=== PATIENT | male | born 1995 | race Caucasian/White ===

== ENCOUNTER 2016-04-19 16:04 | Outpatient (CLI) | payer MEDICAID | END 2016-04-19 16:05 | disposition home or self-care (01) | DX: Z20.2 Contact with and (suspected) exposure to infections with a predominantly sexual mode of transmission (principal) ==

== ENCOUNTER 2016-10-29 04:29 | Emergency (ER) | payer SELFPAY ==
[2016-10-29] MEDS ORDERED: ONDANSETRON 4 MG/2 ML VIAL IVP STA (04:51)
[2016-10-29] MEDS ORDERED: SODIUM CHLORIDE 0.9% 1,000 ML IV ONE (04:51)
[2016-10-29] MEDS ORDERED: KETOROLAC 60 MG/2 ML VIAL IVP STA (04:51)
--- NOTE | 2016-10-29 04:54 | ED Physician Documentation ---
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 denies: Diarrhea, Bloody / black stool : denies: Dysuria Musculoskeletal: denies: Back pain Endocrine: denies: Easy bruising / bleeding Immunocompromised: denies: Immunocompromised PD PAST MEDICAL HISTORY - Past Medical History Respiratory: Asthma GI: Other Other Past Medical History: Appendicitis - Past Surgical History Past Surgical History: Yes General: Appendectomy - Present Medications Home Medications: Ambulatory Orders Medication Instructions Recorded Confirmed Albuterol Sulf [Ventolin Hfa 2 puffs INH Q4HR PRN #1 inhaler 03/03/16 Inhaler] Dicyclomine [Bentyl] 10 mg PO Q8H PRN #20 capsule 10/29/16 - Allergies Allergies/Adverse Reactions: Allergies Allergy/AdvReac Type Severity Reaction Status Date / Time No Known Drug Allergies Allergy Verified 03/03/16 22:05 - Social History Does the pt smoke?: No Smoking Status: Never smoker Does the pt drink ETOH?: No Does the pt have substance abuse?: No - Immunizations Immunizations are current?: Yes PD ED PE NORMAL - Vitals Vital signs reviewed: Yes - General General: Alert and oriented X 3 - HEENT HEENT: Atraumatic - Neck Neck: Supple, no meningeal sign - Cardiac Cardiac: RRR - Respiratory Respiratory: No respiratory distress, Clear bilaterally - Abdomen Abdomen: Other (+ BS, soft, TTP upper > lower abd midd > bilaterally with vol guarding, no rebound, no palpable ventral hernia, no distended) - Male Male : Deferred (denies any pain or swelling) - Back Back: No CVA TTP - Derm Derm: Normal color - Extremities Extremities: No deformity - Neuro Neuro: Alert and oriented X 3 Results - Vitals Vitals: Vital Signs - 24 hr 10/29/16 04:35 Temperature 36.4 C L Heart Rate 71 Respiratory 16 Rate Blood Pressure 127/68 O2 Saturation 100 Oxygen O2 Source Room air - Labs Labs: Laboratory Tests 10/29/16 10/29/16 10/29/16 04:56 04:56 05:36 WBC 7.7 RBC 5.97 Hgb 17.5 Hct 51.4 MCV 86.1 MCH 29.3 MCHC 34.0 RDW 13.6 Plt Count 345 MPV 6.6 L Neut # 2.7 Lymph # 3.5 Gilchrist # 0.7 Eos # 0.7 Baso # 0.1 Absolute Nucleated RBC 0.01 Nucleated RBCs 0.1 Sodium 141 Potassium 4.0 Chloride 102 Carbon Dioxide 32 Anion Gap 7.0 BUN 12 Creatinine 0.7 Estimated GFR (MDRD) 140 Glucose 102 H Calcium 9.7 Total Bilirubin 1.2 H AST 22 ALT 17 Alkaline Phosphatase 54 Total Protein 8.7 H Albumin 5.5 Globulin 3.2 Albumin/Globulin Ratio 1.7 Lipase 21 L Urine Color YELLOW Urine Clarity HAZY Urine pH 8.0 H Ur Specific [place] 1.010 Urine Protein NEGATIVE Urine Glucose (UA) NEGATIVE Urine Ketones NEGATIVE Urine Occult Blood NEGATIVE Urine Nitrite NEGATIVE Urine Bilirubin NEGATIVE Urine Urobilinogen 0.2 (NORMAL) Ur Leukocyte Esterase NEGATIVE Urine RBC None Seen Urine WBC 0-3 Ur Squamous Epith Cells NONE SEEN Amorphous Sediment Moderate Urine Bacteria None Seen Ur Microscopic Review INDICATED Urine Culture Comments NOT INDICATED - Rads (name of study) CT abd pelvis Radiology: See rad report (no acute, mod stool brudern) PD MEDICAL DECISION MAKING - ED course ED course: CT neg for SBO perf gallstones kidney stones pancreatitis aortic issues etc much better after toradol repeat abd exam = mild TTP just superior to umbilicus, no RUQ RLQ pain reassured pt that CT, explained that does not mean nothing is wrong just that there does not seem to be a surgical emergency at this moment and will focus on sx management and prob dc home Departure - Departure Disposition: 01 Home, Self Care Clinical Impression: Abdominal pain Qualifiers: Abdominal location: periumbilical Qualified Code(s): R10.33 - Periumbilical pain Condition: Good Instructions: ED Abdominal Pain Unkn Cause Follow-Up: Janee Cuello ARNP [Primary Care Provider] - Prescriptions: Dicyclomine [Bentyl] 10 mg PO Q8H PRN #20 capsule PRN Reason: stomach pain Comments: All of the tests today came back fine. The urine showed no infection or blood to suggest a kidney stone The blood work including kidney liver and pancreas function was fine. The CT scan did not show any gallstones or kidney stones, no pancreatitis, no aneurysm, no bowel infection/perforation/obstruction, no internal bleeding or free fluid. I am not sure what is causing the pain But given the extensive and reassuring workup, I do not think you need surgery or admission or antibiotics. I think it is safe for you to go home and to get any further work up as an outpatient It is very possible that over time, new or changing symptoms may develop that lead to a diagnosis not presently apparent. That is why close follow up with your PMD for a recheck is very important ( unless you are completely better) If the pain returns or worsens, you can try a medication called bentyl to ease the pains. I do not recommend any strong pain killers because I do not want to mask changing or worsening symptoms Forms: Activity restrictions
[2016-10-29] MEDS ORDERED: KETOROLAC 60 MG/2 ML VIAL ONE (05:05)
[2016-10-29] MEDS ORDERED: ONDANSETRON 4 MG/2 ML VIAL ONE (05:06)
[2016-10-29 05:07] LABS: BASOPHILS # (AUTO) 0.1 10^3/uL (0.0-0.1); BASOPHILS % (AUTO) 1.4 %; EOSINOPHILS # (AUTO) 0.7 10^3/uL (0.0-0.7); EOSINOPHILS % (AUTO) 9.1 %; HCT - HEMATOCRIT 51.4 % (42.0-52.0); HGB - HEMOGLOBIN 17.5 g/dL (14.0-18.0); LYMPHOCYTES # (AUTO) 3.5 10^3/uL (1.5-3.5); LYMPHOCYTES % (AUTO) 44.9 %; MEAN CORPUSCULAR HEMOGLOBIN 29.3 pg (27.0-31.0); MEAN CORPUSCULAR VOLUME 86.1 fL (80.0-94.0); MEAN PLATELET VOLUME 6.6 fL (7.4-11.4); MONOCYTES # (AUTO) 0.7 10^3/uL (0.0-1.0); MONOCYTES % (AUTO) 9.2 %; NEUTROPHILS # (AUTO) 2.7 10^3/uL (1.5-6.6); NEUTROPHILS % (AUTO) 35.4 %; NUCLEATED RED BLOOD CELLS AUTO 0.1 /100WBC; RED BLOOD COUNT 5.97 10^6/uL (4.70-6.10); RED CELL DISTRIBUTION WIDTH 13.6 % (12.0-15.0); UNCORRECTED WHITE BLOOD COUNT 7.7 x10^3/uL; WHITE BLOOD COUNT 7.7 x10^3/uL (4.8-10.8)
[2016-10-29 05:17] LABS: ALBUMIN/GLOBULIN RATIO 1.7 (1.0-2.2); BILIRUBIN,TOTAL 1.2 mg/dL (0.2-1.0); CALCIUM 9.7 mg/dL (8.5-10.3); CREATININE 0.7 mg/dL (0.6-1.2); TOTAL PROTEIN 8.7 g/dL (6.7-8.2)
[2016-10-29] MEDS ORDERED: IOPAMIDOL-300 100 ML VIAL IVP ONE (05:37)
[2016-10-29 05:45] LABS: BILIRUBIN,URINE NEGATIVE (NEGATIVE); UA w/ MICROSCOPIC CHARGE YES
[2016-10-29 05:51] LABS: UR CULTURE IF IND NOT INDICATED; WBC,URINE 0-3 /HPF (0-3)
--- NOTE | 2016-10-29 05:51 | CT Preliminary Report ---
Exam: CT Abdomen/Pelvis W/ IMPRESSION: 1. No acute inflammatory or obstructive process seen in the abdomen or pelvis. 2. Moderate stool burden. [facility] SITE ID: [id number]
--- NOTE | 2016-10-29 05:58 | CT Report ---
EXAM: CT ABDOMEN AND PELVIS EXAM DATE: 10/29/2016 05:41 AM. CLINICAL HISTORY: Severe upper and lower abdominal pain, nausea and vomiting. COMPARISONS: None. TECHNIQUE: Routine helical CT imaging was performed through the abdomen and pelvis. IV contrast: Yes . Enteric contrast: No . Reconstructions: Coronal and sagittal. In accordance with CT protocol optimization, one or more of the following dose reduction techniques w ere utilized for this exam: automated exposure control, adjustment of mA and/or KV based on patient s ize, or use of iterative reconstructive technique. FINDINGS: Lung Bases: Unremarkable. Liver: Unremarkable. No suspicious masses. Gallbladder/Bile Ducts: Unremarkable. Spleen: Unremarkable. Pancreas: Unremarkable. Adrenal Glands: Unremarkable. Kidneys: Unremarkable. No suspicious masses or hydronephrosis. Peritoneal Cavity/Bowel: No bowel obstruction or inflammatory process seen. No free air or significan t free fluid. Minimal free fluid in the pelvis is not atypical in young males. No masses or adenopath y. The appendix is has been removed. Moderate stool burden in the right and sigmoid colon. Pelvic Organs: Bladder and prostate appear unremarkable. Vasculature: No aneurysms or other significant abnormality. Bones: No significant abnormality. Other: None. IMPRESSION: 1. No acute inflammatory or obstructive process seen in the abdomen or pelvis. 2. Moderate stool burden. [facility] Referring Provider Line: [phone] SITE ID: [id number]
[2016-10-29] MEDS ORDERED: MAG HYDROX/AL HYDROX/SIMETH 30 ML UDC PO STA (06:06)
[2016-10-29] MEDS ORDERED: LIDOCAINE VISCOUS 2% 15 ML UDC MM STA (06:06)
[2016-10-29] MEDS ORDERED: MAG HYDROX/AL HYDROX/SIMETH 30 ML UDC ONE (06:12)
[2016-10-29] MEDS ORDERED: LIDOCAINE VISCOUS 2% 15 ML UDC MM ONE (06:12)
[2016-10-29 06:25] VITALS: BP 125/88
== END 2016-10-29 06:24 | disposition home or self-care (01) ==
LOC: ED 04:29
DX: R10.33 Periumbilical pain (principal); J45.909 Unspecified asthma, uncomplicated
CPT/HCPCS: 36415; 74177; 80053; 81001; 83690; 85025; 96374; 99283; 99284; A9270; Q9967; 81003; 87086

== ENCOUNTER 2018-02-21 00:40 | Emergency (ER) | payer OTHER ==
[2018-02-21 01:04] VITALS: BP 142/74
[2018-02-21] MEDS ORDERED: ONDANSETRON ODT 4 MG TABLET TL STA (01:44)
[2018-02-21] MEDS ORDERED: FAMOTIDINE 20 MG TABLET PO STA (01:45)
--- NOTE | 2018-02-21 01:52 | ED Physician Documentation ---
History of Present Illness - Stated complaint Stated Complaint: VOMITING - Chief complaint Chief Complaint: General - Additonal information Additional information: hx from pt 23 y/o male ate nachos vomited nachos then vomited with blood streak drank water vomited again till with blood streaks no bloody black BM mild epigastric pain'sx improved now did not dry heave retch valsalva etc Review of Systems Constitutional: denies: Fever Cardiac: denies: Chest pain / pressure Respiratory: denies: Dyspnea GI: reports: Abdominal Pain (mild), Vomiting, Hematemesis. denies: Bloody / black stool PD PAST MEDICAL HISTORY - Past Medical History Respiratory: Asthma GI: Other - Past Surgical History Past Surgical History: Yes General: Appendectomy - Present Medications Home Medications: Ambulatory Orders Medication Instructions Recorded Confirmed Albuterol Sulf [Ventolin Hfa 2 puffs INH Q4HR PRN #1 inhaler 03/03/16 Inhaler] Dicyclomine [Bentyl] 10 mg PO Q8H PRN #20 capsule 10/29/16 Ondansetron Odt [Zofran] 4 mg TL Q6H PRN #10 tablet 02/21/18 Sucralfate [Carafate] 1 gm PO ACHS #120 tablet 02/21/18 raNITIdine [Zantac] 150 mg PO BID #60 tablet 02/21/18 - Allergies Allergies/Adverse Reactions: Allergies Allergy/AdvReac Type Severity Reaction Status Date / Time No Known Drug Allergies Allergy Verified 02/21/18 01:04 - Social History Does the pt smoke?: No Smoking Status: Never smoker Does the pt drink ETOH?: No Does the pt have substance abuse?: No - Immunizations Immunizations are current?: Yes PD ED PE NORMAL - Vitals Vital signs reviewed: Yes - General General: Alert and oriented X 3 - Cardiac Cardiac: RRR - Respiratory Respiratory: No respiratory distress - Abdomen Abdomen: Soft, Non tender - Derm Derm: Normal color - Neuro Neuro: Alert and oriented X 3 Results - Vitals Vitals: Vital Signs - 24 hr 02/21/18 02/21/18 01:02 01:50 Temperature 36.2 C L Heart Rate 84 Respiratory 17 16 Rate Blood Pressure 142/74 H O2 Saturation 99 Oxygen O2 Source Room air - Labs Labs: Laboratory Tests 02/21/18 01:55 WBC 6.3 RBC 5.39 Hgb 16.1 Hct 45.8 MCV 85.1 MCH 29.8 MCHC 35.0 RDW 13.2 Plt Count 341 MPV 6.2 L Neut # (Auto) 3.2 Lymph # (Auto) 2.1 Starr # (Auto) 0.7 Eos # (Auto) 0.3 Baso # (Auto) 0.1 Absolute Nucleated RBC 0.01 Nucleated RBC % 0.1 Departure - Departure Disposition: 01 Home, Self Care Clinical Impression: Hematemesis Qualifiers: Nausea presence: unspecified Qualified Code(s): K92.0 - Hematemesis Condition: Good Instructions: ED Bleed UGI Stable Follow-Up: Carl Mishra MD [Provider Admit Priv/Credential] - Prescriptions: Ondansetron Odt [Zofran] 4 mg TL Q6H PRN #10 tablet PRN Reason: Nausea / Vomiting raNITIdine [Zantac] 150 mg PO BID #60 tablet Sucralfate [Carafate] 1 gm PO ACHS #120 tablet Comments: Your blood pressure and heart rate and blood count are fine. The bleeding and vomiting seems to have stopped The blood could have come from a small tear that occurred while vomiting or from stomach irritation from the nachos I have prescribed medication for vomiting and stomach irritation. And I have referred your the the surgical office - if the symptoms persist you may need a scope of your stomach by one of the surgeons Return f worse (more vomiting blood, pooping blood, feeling faint, severe abdominal pain)
[2018-02-21 02:01] LABS: BASOPHILS # (AUTO) 0.1 10^3/uL (0.0-0.1); EOSINOPHILS # (AUTO) 0.3 10^3/uL (0.0-0.7); EOSINOPHILS % (AUTO) 4.3 %; HGB - HEMOGLOBIN 16.1 g/dL (14.0-18.0); LYMPHOCYTES # (AUTO) 2.1 10^3/uL (1.5-3.5); LYMPHOCYTES % (AUTO) 33.8 %; MEAN CORPUSCULAR HEMOGLOBIN 29.8 pg (27.0-31.0); MEAN CORPUSCULAR VOLUME 85.1 fL (80.0-94.0); MEAN PLATELET VOLUME 6.2 fL (7.4-11.4); MONOCYTES # (AUTO) 0.7 10^3/uL (0.0-1.0); MONOCYTES % (AUTO) 10.5 %; NEUTROPHILS # (AUTO) 3.2 10^3/uL (1.5-6.6); NEUTROPHILS % (AUTO) 50.4 %; PLT - PLATELET COUNT 341 10^3/uL (130-450); RED BLOOD COUNT 5.39 10^6/uL (4.70-6.10); RED CELL DISTRIBUTION WIDTH 13.2 % (12.0-15.0); WHITE BLOOD COUNT 6.3 x10^3/uL (4.8-10.8)
== END 2018-02-21 02:20 | disposition home or self-care (01) ==
LOC: ED 00:40
DX: K92.0 Hematemesis (principal)
CPT/HCPCS: 36415; 85025; 99283; A9270; Q0162

== ENCOUNTER 2018-08-04 22:04 | Emergency (ER) | payer OTHER ==
--- NOTE | 2018-08-04 23:00 | ED Physician Documentation ---
PD HPI HEADACHE - Stated complaint Stated Complaint: HEADACHE/NAUSEA/COUGH - Chief complaint Chief Complaint: Heent - History obtained from History obtained from: Patient - History of Present Illness Timing - onset: How many days ago (5) Timing - onset during: Light activity (5 days of feeling occipital headache with bending and stooping.) Timing - duration: Days (5) Timing - details: Gradual onset, Waxing and waning Worst headache ever?: No: Worst headache ever? Location: Back Quality: Throbbing, Aching Associated symptoms: Other (has had some congestion and cough, sinus pressure.). No: Fever, Stiff neck, Nausea Worsened by: No: Light, Noise Contributing factors: Recent illness (URI symptoms). No: Trauma Similar symptoms before: Diagnosis (sinus infection about once yearly. Had not been ill yet this season) Review of Systems Constitutional: reports: Fatigue. denies: Fever, Myalgias Nose: reports: Congestion, Sinus pressure / pain. denies: Rhinorrhea / runny nose Throat: denies: Sore throat Cardiac: denies: Chest pain / pressure Respiratory: reports: Dyspnea, Cough. denies: Wheezing GI: reports: Abdominal Pain, Nausea, Vomiting. denies: Diarrhea Neurologic: reports: Headache (occiput area, pressure and intermittent, more consistent the past 1-2 days). denies: Focal weakness, Numbness, Near syncope, Altered mental status PD PAST MEDICAL HISTORY - Past Medical History Past Medical History: Yes Cardiovascular: None Respiratory: Asthma Neuro: None Endocrine/Autoimmune: None GI: Other : None HEENT: None Psych: None Musculoskeletal: None Derm: None - Past Surgical History Past Surgical History: Yes General: Appendectomy - Present Medications Home Medications: Ambulatory Orders Medication Instructions Recorded Confirmed Albuterol Sulf [Ventolin Hfa 2 puffs INH Q4HR PRN #1 inhaler 03/03/16 Inhaler] Dicyclomine [Bentyl] 10 mg PO Q8H PRN #20 capsule 10/29/16 Ondansetron Odt [Zofran] 4 mg TL Q6H PRN #10 tablet 02/21/18 Sucralfate [Carafate] 1 gm PO ACHS #120 tablet 02/21/18 raNITIdine [Zantac] 150 mg PO BID #60 tablet 02/21/18 Doxycycline Hyclate 100 mg PO BID #14 capsule 08/04/18 Hydrocodone/Acetaminophen [Bryan 1 each PO Q6H PRN #12 tablet 08/04/18 5-325 Tablet] dexAMETHasone [Decadron] 4 mg PO DAILY #5 tablet 08/04/18 - Allergies Allergies/Adverse Reactions: Allergies Allergy/AdvReac Type Severity Reaction Status Date / Time No Known Drug Allergies Allergy Verified 08/04/18 22:12 - Social History Does the pt smoke?: No Smoking Status: Never smoker Does the pt drink ETOH?: No Does the pt have substance abuse?: No - Immunizations Immunizations are current?: Yes - POLST Patient has POLST: No PD ED PE NORMAL - Vitals Vital signs reviewed: Yes - General General: Alert and oriented X 3, No acute distress, Well developed/nourished - HEENT HEENT: Ears normal, Pharynx benign - Neck Neck: Supple, no meningeal sign, No adenopathy - Cardiac Cardiac: RRR, No murmur - Respiratory Respiratory: No respiratory distress - Abdomen Abdomen: Soft, Non tender - Derm Derm: Normal color, Warm and dry - Neuro Neuro: Alert and oriented X 3, 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 Having concurrent nasal congestion, cough and malaise. I think is viral, but some pressure in sinuses, suggests potential for bacterial.), d/w patient Departure - Departure Disposition: 01 Home, Self Care Clinical Impression: Occipital headache Upper respiratory infection Qualifiers: URI type: unspecified URI Qualified Code(s): J06.9 - Acute upper respiratory infection, unspecified Condition: Stable Record reviewed to determine appropriate education?: Yes Instructions: ED Upper Resp Infec Abx Tx, ED Cephalgia Unspecified Follow-Up: Janee Cuello ARNP [Primary Care Provider] - Prescriptions: dexAMETHasone [Decadron] 4 mg PO DAILY #5 tablet Doxycycline Hyclate 100 mg PO BID #14 capsule Hydrocodone/Acetaminophen [Bryan 5-325 Tablet] 1 each PO Q6H PRN #12 tablet PRN Reason: Pain Comments: It seems reasonable that your headache is related to the inflammation or in fection given you the sinus pressure and sore throat and cough. We will treat this with anti-inflammatories as well as medication for the pain in the short- term. This may be viral or alert allergies and occasionally bacterial. We can treated with antibiotics as well for that potential. Recheck if not improved over the next several days. Recheck also if the headache persists even after your upper respiratory infection improves or if you have any associated symptoms develop such as visual changes, one-sided weakness, or other concerning symptoms. Discharge Date/Time: 08/05/18 00:08
[2018-08-04] MEDS ORDERED: CHERRY SYRUP 10 ML UDC PO ONE (23:41)
[2018-08-04] MEDS ORDERED: DOXYCYCLINE 100 MG TABLET PO STA (23:41)
[2018-08-04] MEDS ORDERED: DEXAMETHASONE 10 MG/ML VIAL PO STA (23:41)
[2018-08-04] MEDS ORDERED: HYDROcod/ACET 5/325 Prepack 4 PO STA (23:42)
[2018-08-04] MEDS ORDERED: HYDROcod/ACETAM 5/325 MG TABLET PO STA (23:42)
[2018-08-05 00:06] VITALS: BP 114/62
== END 2018-08-05 00:08 | disposition home or self-care (01) ==
LOC: ED 22:04
DX: R51 Headache (principal); J06.9 Acute upper respiratory infection, unspecified
CPT/HCPCS: 99283; A9270

== ENCOUNTER 2018-09-03 20:26 | Emergency (ER) | payer OTHER ==
--- NOTE | 2018-09-03 20:29 | ED Physician Documentation ---
PD HPI SKIN - Stated complaint Stated Complaint: ABD BURN - History obtained from History obtained from: Patient - History of Present Illness Timing - onset: Today Timing - details: Abrupt onset Location: Abdomen (right lower abd skin burn from hot water at work) Quality / character: Painful, Burning Associated symptoms: No: N/V/D Similar symptoms before: Has not had sx before Recently seen: Not recently seen Review of Systems GI: reports: Abdominal Pain (just at skin level). denies: Nausea, Vomiting Neurologic: denies: Focal weakness, Numbness PD PAST MEDICAL HISTORY - Past Medical History Cardiovascular: None Respiratory: Asthma Neuro: None Endocrine/Autoimmune: None GI: Other : None HEENT: None Psych: None Musculoskeletal: None Derm: None - Past Surgical History Past Surgical History: Yes General: Appendectomy - Present Medications Home Medications: Ambulatory Orders Medication Instructions Recorded Confirmed Albuterol Sulf [Ventolin Hfa 2 puffs INH Q4HR PRN #1 inhaler 03/03/16 Inhaler] Dicyclomine [Bentyl] 10 mg PO Q8H PRN #20 capsule 10/29/16 Ondansetron Odt [Zofran] 4 mg TL Q6H PRN #10 tablet 02/21/18 Sucralfate [Carafate] 1 gm PO ACHS #120 tablet 02/21/18 raNITIdine [Zantac] 150 mg PO BID #60 tablet 02/21/18 Doxycycline Hyclate 100 mg PO BID #14 capsule 08/04/18 Hydrocodone/Acetaminophen [[place] 1 each PO Q6H PRN #12 tablet 08/04/18 5-325 Tablet] dexAMETHasone [Decadron] 4 mg PO DAILY #5 tablet 08/04/18 - Allergies Allergies/Adverse Reactions: Allergies Allergy/AdvReac Type Severity Reaction Status Date / Time No Known Drug Allergies Allergy Verified 09/03/18 20:32 - Social History Does the pt smoke?: No Smoking Status: Never smoker Does the pt drink ETOH?: No Does the pt have substance abuse?: No - Immunizations Immunizations are current?: Yes - POLST Patient has POLST: No PD ED PE NORMAL - Vitals Vital signs reviewed: Yes - General General: Alert and oriented X 3, No acute distress, Well developed/nourished - Abdomen Abdomen: Normal bowel sounds, Soft, Non distended, No organomegaly, Other (Right lower abdomen is tender just at the skin level with the handprint sized area of first-degree burn primarily and a half dollar sized area of blistering. The ski n is still intact. There is no foreign body material seen.) Results - Vitals Vitals: Vital Signs - 24 hr 09/03/18 20:30 Temperature 36.7 C Heart Rate 86 Respiratory 18 Rate Blood Pressure 125/70 O2 Saturation 98 Oxygen O2 Source Room air PD MEDICAL DECISION MAKING - ED course Complexity details: considered differential (Mild burn primarily first-degree with a small patch set second-degree blistering. No deeper burn.), d/w patient Departure - Departure Disposition: Home, Self Care Clinical Impression: Burn of abdomen wall Qualifiers: Encounter type: initial encounter Burn degree: partial thickness (2nd degree) Qualified Code(s): T21.22XA - Burn of second degree of abdominal wall, initial encounter Condition: Stable Record reviewed to determine appropriate education?: Yes Health Concerns: skin burn at work Plan of Treatment: burn care Care Goals: healing of injury Assessment: mostly first degree burn with small area of blistering Instructions: ED Burn D 2nd Comments: Ibuprofen Tylenol or naproxen as needed for pains. Use the lidocaine jelly topically as needed for the pain of the burn. It typically hurts much less after a day to 2. Leave the blister intact initially and it will loosen up and peel off after few days. At that point the skin underneath will be as tender. Recheck if signs of infection.
[2018-09-03 20:33] VITALS: BP 125/70
[2018-09-03] MEDS ORDERED: LIDOCAINE JELLY 2% 5 ML TUBE TOP STA (20:41)
[2018-09-03] MEDS ORDERED: HYDROcod/ACETAM 5/325 MG TABLET PO STA (20:41)
[2018-09-03] MEDS ORDERED: NAPROXEN 250 MG TABLET PO STA (20:41)
== END 2018-09-03 20:56 | disposition home or self-care (01) ==
LOC: ED 20:26
DX: T21.22XA Burn of second degree of abdominal wall, initial encounter (principal); T31.0 Burns involving less than 10% of body surface; X11.8XXA Contact with other hot tap-water, initial encounter; Y99.0 Civilian activity done for income or pay
CPT/HCPCS: 99282; A9270; J3490

== ENCOUNTER 2021-04-07 23:27 | Emergency (ER) | payer OTHER ==
[2021-04-08] MEDS ORDERED: AMOXICILLIN 250 MG CAPSULE PO STA (00:49)
[2021-04-08] MEDS ORDERED: HYDROcod/ACETAM 5/325 MG TABLET PO STA (00:49)
--- NOTE | 2021-04-08 00:52 | ED Physician Documentation ---
PD HPI HEENT - Stated complaint Stated Complaint: FACE SWELLING - Chief complaint Chief Complaint: Heent - History obtained from History obtained from: Patient - Additional information Additional information: Patient comes to the emergency department chief complaint of dental pain and facial swelling. He states that he has had a decayed right maxillary tooth and has developed some swelling going up his right cheek. He is scheduled to have an appointment with his dentist tomorrow, but was concerned because the swelling seems to be getting worse. No fevers or chills. No drainage into his mouth. No other complaints at this time. Review of Systems Ten Systems: 10 systems reviewed and negative Constitutional: reports: Reviewed and negative Eyes: reports: Reviewed and negative Ears: reports: Reviewed and negative Nose: reports: Reviewed and negative Throat: reports: Dental pain / toothache Cardiac: reports: Reviewed and negative Respiratory: reports: Reviewed and negative GI: reports: Reviewed and negative : reports: Reviewed and negative Skin: reports: Reviewed and negative Musculoskeletal: reports: Reviewed and negative Neurologic: reports: Reviewed and negative Psychiatric: reports: Reviewed and negative Endocrine: reports: Reviewed and negative Immunocompromised: reports: Reviewed and negative PD PAST MEDICAL HISTORY - Past Medical History Cardiovascular: None Respiratory: Asthma Neuro: None Endocrine/Autoimmune: None GI: Other : None HEENT: None Psych: None Musculoskeletal: None Derm: None - Past Surgical History Past Surgical History: Yes General: Appendectomy - Present Medications Home Medications: Ambulatory Orders Medication Instructions Recorded Confirmed Albuterol Sulf [Ventolin Hfa 2 puffs INH Q4HR PRN #1 inhaler 03/03/16 04/07/21 Inhaler] Amoxicillin 500 mg PO TID 7 Days #21 cap 04/08/21 - Allergies Allergies/Adverse Reactions: Allergies Allergy/AdvReac Type Severity Reaction Status Date / Time No Known Drug Allergies Allergy Verified 09/03/18 20:32 - Social History Does the pt smoke?: No Smoking Status: Never smoker Does the pt drink ETOH?: No Does the pt have substance abuse?: No - Immunizations Immunizations are current?: Yes - POLST Patient has POLST: No PD ED PE NORMAL - Vitals Vital signs reviewed: Yes - General General: Alert and oriented X 3, No acute distress, Well developed/nourished - HEENT HEENT: Atraumatic, PERRL, EOMI, Moist mucous membranes, Other (Poor dentition. Edema of gingiva without distinct fluctuant area on the right maxillary aspect. Edema without palpable fluid collection extending up the medial maxillary area on the right, not involving the nose. No erythema of the face.) - Neck Neck: Supple, no meningeal sign, No adenopathy - Respiratory Respiratory: No respiratory distress - Derm Derm: Normal color, Warm and dry, No rash - Extremities Extremities: No deformity - Neuro Neuro: Alert and oriented X 3 - Psych Psych: Normal mood, Normal affect Results - Vitals Vitals: Vital Signs - 24 hr 04/07/21 23:37 Temperature 36.2 C L Heart Rate 82 Respiratory 16 Rate Blood Pressure 117/72 O2 Saturation 98 Oxygen O2 Source Room air PD MEDICAL DECISION MAKING - ED course Complexity details: considered differential, d/w patient ED course: The patient was treated with amoxicillin and a dose of hydrocodone in the emergency department. We have discussed the need to see his dentist tomorrow, as well as usual indications for return. Departure - Departure Disposition: 01 Home, Self Care Clinical Impression: Dental infection Condition: Stable Instructions: ED Abscess Tooth Prescriptions: Amoxicillin 500 mg PO TID 7 Days #21 cap Comments: Please be sure to keep your appointment see your dentist tomorrow.
[2021-04-08 01:19] VITALS: BP 114/78
== END 2021-04-08 01:19 | disposition home or self-care (01) ==
LOC: ED 23:27
DX: K04.7 Periapical abscess without sinus (principal)
CPT/HCPCS: 99282; A9270

== ENCOUNTER 2021-04-27 00:33 | Emergency (ER) | payer OTHER ==
--- NOTE | 2021-04-27 00:46 | ED Physician Documentation ---
History of Present Illness - Stated complaint Stated Complaint: SI - Chief complaint Chief Complaint: MHE - History obtained from History obtained from: Patient, Police - Additonal information Additional information: 18-year-old man with history of depression and anxiety, recent hospitalization at [facility] for his mental health presents with passive suicidal ideation. Patient's girlfriend called 911 because he was expressing thoughts of not wanting to live anymore. Patient reported 6 weeks ago that he was thinking about drowning himself and also expressed suicidal intentions within the past 24 hours. Denies SI, HI, AVH at present. contracts for safety Review of Systems Ten Systems: 10 systems reviewed and negative PD PAST MEDICAL HISTORY - Past Medical History Cardiovascular: None Respiratory: Asthma Neuro: None Endocrine/Autoimmune: None GI: Other : None HEENT: None Psych: None Musculoskeletal: None Derm: None - Past Surgical History Past Surgical History: Yes General: Appendectomy - Present Medications Home Medications: Ambulatory Orders Medication Instructions Recorded Confirmed Albuterol Sulf [Ventolin Hfa 2 puffs INH Q4HR PRN #1 inhaler 03/03/16 04/27/21 Inhaler] Bupropion HCl [Wellbutrin Xl] 300 mg PO DAILY 04/27/21 04/27/21 - Allergies Allergies/Adverse Reactions: Allergies Allergy/AdvReac Type Severity Reaction Status Date / Time No Known Drug Allergies Allergy Verified 04/27/21 00:43 - Social History Does the pt smoke?: No Smoking Status: Never smoker Does the pt drink ETOH?: No Does the pt have substance abuse?: No - Immunizations Immunizations are current?: Yes - POLST Patient has POLST: No PD ED PE NORMAL - Vitals Vital signs reviewed: Yes - General General: Alert and oriented X 3, No acute distress, Well developed/nourished - HEENT HEENT: Atraumatic, PERRL, EOMI - Neck Neck: Supple, no meningeal sign - Cardiac Cardiac: RRR - Respiratory Respiratory: No respiratory distress, Clear bilaterally - Abdomen Abdomen: Non tender, Non distended - Derm Derm: Normal color, Warm and dry - Extremities Extremities: No deformity, No edema - Neuro Neuro: No motor deficit, No sensory deficit - Psych Psych: Other (depressed affect) Results - Vitals Vitals: Vital Signs - 24 hr 04/27/21 04/27/21 00:38 06:08 Temperature 36.6 C 36.9 C Heart Rate 90 81 Respiratory 18 14 Rate Blood Pressure 125/98 H 119/79 O2 Saturation 98 95 Oxygen O2 Source Room air - Labs Labs: Laboratory Tests 04/27/21 04/27/21 04/27/21 00:50 00:50 01:02 WBC 6.1 RBC 5.34 Hgb 15.4 Hct 45.9 MCV 86.0 MCH 28.8 MCHC 33.6 RDW 13.2 Plt Count 378 MPV 8.1 Neut # (Auto) 3.2 Lymph # (Auto) 1.9 [place] # (Auto) 0.6 Eos # (Auto) 0.3 Baso # (Auto) 0.1 Absolute Nucleated RBC 0.00 Nucleated RBC % 0.0 Sodium Potassium Chloride Carbon Dioxide Anion Gap BUN Creatinine Estimated GFR (MDRD) Glucose Calcium Total Bilirubin AST ALT Alkaline Phosphatase Total Protein Albumin Globulin Albumin/Globulin Ratio Lipase TSH Urine Color YELLOW Urine Clarity CLEAR Urine pH 6.0 Ur Specific [place] >=1.030 H Urine Protein NEGATIVE Urine Glucose (UA) NEGATIVE Urine Ketones NEGATIVE Urine Occult Blood NEGATIVE Urine Nitrite NEGATIVE Urine Bilirubin NEGATIVE Urine Urobilinogen 0.2 (NORMAL) Ur Leukocyte Esterase NEGATIVE Ur Microscopic Review NOT INDICATED Urine Culture Comments NOT INDICATED Nasal Adenovirus (PCR) NOT DETECTED Nasal B. parapertussis DNA (PCR) NOT DETECTED Nasal Coronavir 229E PCR NOT DETECTED Nasal Coronavir HKU1 PCR NOT DETECTED Nasal Coronavir NL63 PCR NOT DETECTED Nasal Coronavir OC43 PCR NOT DETECTED Nasal Enterovir/Rhinovir PCR NOT DETECTED Nasal Influenza B PCR NOT DETECTED Nasal Influenza A PCR NOT DETECTED Nasal Parainfluen 1 PCR NOT DETECTED Nasal Parainfluen 2 PCR NOT DETECTED Nasal Parainfluen 3 PCR NOT DETECTED Nasal Parainfluen 4 PCR NOT DETECTED Nasal RSV (PCR) NOT DETECTED Nasal B.pertussis DNA PCR NOT DETECTED Nasal C.pneumoniae (PCR) NOT DETECTED [place] Human Metapneumo PCR NOT DETECTED Nasal M.pneumoniae (PCR) NOT DETECTED Nasal SARS-CoV-2 (PCR) NOT DETECTED Salicylates Urine Opiates Screen NEGATIVE Ur Oxycodone Screen NEGATIVE Urine Methadone Screen NEGATIVE Ur Propoxyphene Screen NEGATIVE Acetaminophen Ur Barbiturates Screen NEGATIVE Ur Tricyclics Screen NEGATIVE Ur Phencyclidine Scrn NEGATIVE Ur Amphetamine Screen NEGATIVE U Methamphetamines Scrn NEGATIVE U Benzodiazepines Scrn NEGATIVE Urine Cocaine Screen NEGATIVE U Cannabinoids Screen NEGATIVE Ethyl Alcohol 04/27/21 04/27/21 01:02 01:02 WBC RBC Hgb Hct MCV MCH MCHC RDW Plt Count MPV Neut # (Auto) Lymph # (Auto) [place] # (Auto) Eos # (Auto) Baso # (Auto) Absolute Nucleated RBC Nucleated RBC % Sodium 137 Potassium 3.9 Chloride 99 L Carbon Dioxide 29 Anion Gap 9.0 BUN 14 Creatinine 0.9 Estimated GFR (MDRD) 100 Glucose 90 Calcium 9.3 Total Bilirubin 0.7 AST 21 ALT 17 Alkaline Phosphatase 48 Total Protein 7.8 Albumin 4.5 Globulin 3.3 Albumin/Globulin Ratio 1.4 Lipase 26 TSH 1.89 Urine Color Urine Clarity Urine pH Ur Specific [place] Urine Protein Urine Glucose (UA) Urine Ketones Urine Occult Blood Urine Nitrite Urine Bilirubin Urine Urobilinogen Ur Leukocyte Esterase Ur Microscopic Review Urine Culture Comments Nasal Adenovirus (PCR) Nasal B. parapertussis DNA (PCR) Nasal Coronavir 229E PCR Nasal Coronavir HKU1 PCR Nasal Coronavir NL63 PCR Nasal Coronavir OC43 PCR Nasal Enterovir/Rhinovir PCR Nasal Influenza B PCR Nasal Influenza A PCR Nasal Parainfluen 1 PCR Nasal Parainfluen 2 PCR Nasal Parainfluen 3 PCR Nasal Parainfluen 4 PCR Nasal RSV (PCR) Nasal B.pertussis DNA PCR Nasal C.pneumoniae (PCR) [place] Human Metapneumo PCR Nasal M.pneumoniae (PCR) Nasal SARS-CoV-2 (PCR) Salicylates < 6.0 Urine Opiates Screen Ur Oxycodone Screen Urine Methadone Screen Ur Propoxyphene Screen Acetaminophen < 10 L Ur Barbiturates Screen Ur Tricyclics Screen Ur Phencyclidine Scrn Ur Amphetamine Screen U Methamphetamines Scrn U Benzodiazepines Scrn Urine Cocaine Screen U Cannabinoids Screen Ethyl Alcohol < 5.0 PD MEDICAL DECISION MAKING - ED course ED course: 26-year-old man presents for mental health evaluation after expressing suicidal thoughts to his girlfriend susi. Will obtain screening lab work, social work to see in the morning. 7am - patient is now awake, alert, denying SI, stating he got in an argument with girlfriend and has no active suicidal thoughts at present. does still endorse depressive symptoms and would like to speak with social work. patient endorsed to tony Monroe MD.
[2021-04-27 00:58] LABS: MUDS CUTOFF CONCENTRATIONS CUTOFF CONC BELOW:
[2021-04-27 01:02] LABS: BILIRUBIN,URINE NEGATIVE (NEGATIVE); GLUCOSE, URINE (UA) NEGATIVE (NEGATIVE); KETONES,URINE (UA) NEGATIVE (NEGATIVE); LEUKOCYTE ESTERASE, URINE NEGATIVE (NEGATIVE); NITRITE,URINE NEGATIVE (NEGATIVE); OCCULT BLOOD,URINE NEGATIVE (NEGATIVE); PROTEIN,URINE NEGATIVE (NEGATIVE); UROBILINOGEN,URINE 0.2 (NORMAL) E.U./dL (NORMAL)
[2021-04-27 01:03] LABS: CLARITY,URINE CLEAR (CLEAR)
[2021-04-27 01:07] LABS: BASOPHILS # (AUTO) 0.1 10^3/uL (0.0-0.1); BASOPHILS % (AUTO) 1.1 %; EOSINOPHILS # (AUTO) 0.3 10^3/uL (0.0-0.7); EOSINOPHILS % (AUTO) 5.1 %; HCT - HEMATOCRIT 45.9 % (42.0-52.0); HGB - HEMOGLOBIN 15.4 g/dL (14.0-18.0); LYMPHOCYTES # (AUTO) 1.9 10^3/uL (1.5-3.5); LYMPHOCYTES % (AUTO) 31.9 %; MEAN CORPUSCULAR HEMOGLOBIN 28.8 pg (27.0-31.0); MEAN CORPUSCULAR HGB CONC 33.6 g/dL (32.0-36.0); MEAN PLATELET VOLUME 8.1 fL (7.4-11.4); MONOCYTES # (AUTO) 0.6 10^3/uL (0.0-1.0); MONOCYTES % (AUTO) 9.7 %; NEUTROPHILS # (AUTO) 3.2 10^3/uL (1.5-6.6); NEUTROPHILS % (AUTO) 51.9 %; PLT - PLATELET COUNT 378 10^3/uL (130-450); RED BLOOD COUNT 5.34 10^6/uL (4.70-6.10); RED CELL DISTRIBUTION WIDTH 13.2 % (12.0-15.0); WHITE BLOOD COUNT 6.1 x10^3/uL (4.8-10.8)
[2021-04-27 01:12] LABS: AMPHETAMINE SCREEN,URINE NEGATIVE (NEGATIVE); BARBITURATE SCREEN,UR NEGATIVE (NEGATIVE); BENZODIAZEPINES SCREEN, URINE NEGATIVE (NEGATIVE); COCAINE SCREEN URINE NEGATIVE (NEGATIVE); METHADONE SCREEN, URINE NEGATIVE (NEGATIVE); METHAMPHETAMINES SCREEN, URINE NEGATIVE (NEGATIVE); OPIATE SCREEN, URINE NEGATIVE (NEGATIVE); OXYCODONE SCREEN, URINE NEGATIVE (NEGATIVE); PROPOXYPHENE SCREEN, URINE NEGATIVE (NEGATIVE); THC CANNABINOID SCREEN, URINE NEGATIVE (NEGATIVE); TRICYCLIC ANTIDEPRESSANT,URINE NEGATIVE (NEGATIVE)
[2021-04-27 01:23] LABS: ACETAMINOPHEN < 10 ug/mL (10-30); ALBUMIN 4.5 g/dL (3.2-5.5); ALBUMIN/GLOBULIN RATIO 1.4 (1.0-2.2); ALKALINE PHOSPHATASE 48 IU/L (42-121); ALT ALANINE AMINOTRANSFERASE 17 IU/L (10-60); AST ASPARTATE AMINOTRANSFERASE 21 IU/L (10-42); BILIRUBIN,TOTAL 0.7 mg/dL (0.2-1.0); BUN - BLOOD UREA NITROGEN 14 mg/dL (6-20); CALCIUM 9.3 mg/dL (8.5-10.3); CARBON DIOXIDE - CO2 29 mmol/L (21-32); CHLORIDE 99 mmol/L (101-111); CREATININE 0.9 mg/dL (0.6-1.2); ETOH - ETHANOL < 5.0 mg/dL; GFR - MDRD 100 (>89); GLUCOSE 90 mg/dL (70-100); LIPASE 26 U/L (22-51); POTASSIUM 3.9 mmol/L (3.5-5.0); SALICYLATE < 6.0 mg/dL; SODIUM 137 mmol/L (135-145); TOTAL PROTEIN 7.8 g/dL (6.7-8.2)
[2021-04-27 01:45] LABS: B. PARAPERTUSSIS- RESP PCR PAN NOT DETECTED; B. PERTUSSIS- RESP PCR PANEL NOT DETECTED; C. PNEUMONIAE- RESP PCR PANEL NOT DETECTED; CORONAVIRUS 229E-RESP PCR NOT DETECTED; CORONAVIRUS HKU1-RESP PCR NOT DETECTED; CORONAVIRUS NL63-RESP PCR NOT DETECTED; CORONAVIRUS OC43-RESP PCR NOT DETECTED; HUMAN METAPNEUMOVIRUS NOT DETECTED; INFLUENZA A- RESP PCR PANEL NOT DETECTED; INFLUENZA B - RESP PCR PANEL NOT DETECTED; M. PNEUMONIAE- RESP PCR PANEL NOT DETECTED; PARAINFLUENZA VIRUS 1 NOT DETECTED; PARAINFLUENZA VIRUS 2 NOT DETECTED; PARAINFLUENZA VIRUS 3 NOT DETECTED; PARAINFLUENZA VIRUS 4 NOT DETECTED; RHINOVIRUS/ENTEROVIRUS NOT DETECTED; RSV- RESP PCR PANEL NOT DETECTED; SARS-CoV-2 -RESP PCR PANEL NOT DETECTED
[2021-04-27] MEDS ORDERED: buPROPion XL 150 MG TABLET PO STA (09:43)
--- NOTE | 2021-04-27 12:08 | ED Physician Documentation ---
ED Addendum - Addendum Addendum: The patient was seen by social work. He is denying/suicidal ideation at this time. He does feel that he needs continued counseling. He is connected with that. Social work talked with his mother who will come pick him up and allow the patient to stay with her for a couple of weeks to help with social setting. The patient is comfortable with this plan. He will be discharged from the department. Disposition: Patient is discharged from the emergency department stable to home Diagnoses: 1. Anxiety disorder 2. Depression 3. Suicidal ideation 04/27/21 12:06
[2021-04-27 12:32] VITALS: BP 113/62
== END 2021-04-27 13:30 | disposition home or self-care (01) ==
LOC: ED 00:33
DX: R45.851 Suicidal ideations (principal); F41.9 Anxiety disorder, unspecified; F32.A Depression, unspecified; Z20.822 Contact with and (suspected) exposure to COVID-19
CPT/HCPCS: 0202U; 36415; 80053; 80306; 80307; 80320; 80329; 81003; 83690; 84443; 85025; 99283; A9270; 81001; 87086

== ENCOUNTER 2021-12-28 08:00 | Outpatient (CLI) | payer OTHER | END 2021-12-28 23:59 | disposition home or self-care (01) | LOC: LAB.S 08:00 | PROVIDERS: ATTEND Physician Assistant | DX: R05.1 Acute cough (principal) | CPT/HCPCS: 87798 ==